=== PATIENT | male | born 1965 | race African-American/Black ===

== ENCOUNTER 2019-06-10 15:00 | Inpatient (IN) ==
[2019-06-10 15:53] LABS: Apearance,Urine CLEAR (Clear); Bilirubin,Urine Negative (Negative); Blood, Urine Negative (Negative); Glucose,Urine (UA) Negative (Negative); Ketones,Urine 5 mg/dL (Negative); Mucus,Urine Occasional /LPF (Occasional); Nitrite,Urine Negative (Negative); Protein,Urine >=500 MG/DL; RBC,Urine 1 /HPF (0-4); Squamous Epithelial Cell,Urine Occasional /HPF (0-10); Urine Color Amber (Yellow); WBC,Urine <1 /HPF (0-6)
[2019-06-10 16:24] LABS: Basophils # 0.1 10*3/uL (0.0-0.2); Basophils % 0.9 % (0.0-0.8); Eosinophils # 0.3 10*3/uL (0.0-0.87); Eosinophils % 5.5 % (0.00-10.9); Hematocrit 34.6 VOL% (42.0-52.0); Hemoglobin 10.5 GM/DL (14.0-18.0); Immature Granulocytes % 0.4 %; Immature Granulocytes Absolute 0.02 #; Lymphocytes # 0.8 10*3/uL (1.4-4.0); Lymphocytes % 13.7 % (21.2-54.2); Mean Corpuscular HGB Conc 30.3 GM/DL (32-36); Mean Corpuscular Volume 70.3 FL (87-102); Monocytes % 5.1 % (1.7-12.7); Neutrophils % 74.4 % (38.7-73.9); Platelet Count 194 T/CUMM (130-400); Red Blood Count 4.92 MC/CUMM (3.8-5.5); Red Cell Distribution Width 22.3 % (9.3-17.3); White Blood Count 5.7 T/CUMM (4-12)
[2019-06-10 16:41] LABS: Albumin 3.5 G/DL (3.4-5.0); Calcium 8.8 MG/DL (8.5-10.1); Osmolality,Calculated 292.1 MOS/KG (273-304); Total Protein 6.7 G/DL (6.4-8.3)
[2019-06-10] MEDS ORDERED: ACETAMINOPHEN 325 MG TABLET PO PRN (18:41)
[2019-06-10] MEDS ORDERED: ONDANSETRON 4 MG/2 ML VIAL IV PRN (18:41)
[2019-06-10] MEDS: DEXTROSE 5% NACL 0.45% 1,000 ML IV SCH (19:30)
[2019-06-10] MEDS ORDERED: hydrALAZINE 20 MG/1 ML VIAL IV STA ×2 (19:47→19:48)
[2019-06-10] MEDS ORDERED: hydrALAZINE 20 MG/1 ML VIAL IV PRN (19:48)
[2019-06-10 19:51] LABS: Calcium 8.5 MG/DL (8.5-10.1); Osmolality,Calculated 295.8 MOS/KG (273-304)
[2019-06-10 20:35] LABS: Barbiturates Screen,Urine Negative (Negative); Benzodiazepines Screen,Urine Negative (Negative); Cannabinoid Screen,Urine Positive (Negative); Opiate Screen,Urine Negative (Negative); Phencyclidine Screen,Urine Negative (Negative)
[2019-06-10] MEDS: cefOXitin 2,000 MG in SYRINGE 1 EACH IV SCH (20:58)
[2019-06-10] MEDS ORDERED: hydrALAZINE 25 MG TABLET PO SCH (22:00)
[2019-06-11] MEDS ORDERED: PNEUMOCOCCAL VACCINE (23 VALENT) 0.5 ML VIAL IM ONE (00:30)
[2019-06-11] MEDS: cefOXitin 2,000 MG in SYRINGE 1 EACH IV SCH ×4 (01:57→20:55)
[2019-06-11 04:53] LABS: Basophils # 0.1 10*3/uL (0.0-0.2); Basophils % 0.8 % (0.0-0.8); Eosinophils # 0.5 10*3/uL (0.0-0.87); Eosinophils % 7.1 % (0.00-10.9); Hemoglobin 10.6 GM/DL (14.0-18.0); Immature Granulocytes % 0.7 %; Immature Granulocytes Absolute 0.05 #; Lymphocytes # 1.3 10*3/uL (1.4-4.0); Lymphocytes % 17.5 % (21.2-54.2); Mean Corpuscular HGB Conc 31.2 GM/DL (32-36); Mean Corpuscular Volume 68.4 FL (87-102); Monocytes % 4.5 % (1.7-12.7); Neutrophils % 69.4 % (38.7-73.9); Platelet Count 196 T/CUMM (130-400); Red Blood Count 4.97 MC/CUMM (3.8-5.5); Red Cell Distribution Width 22.7 % (9.3-17.3); White Blood Count 7.3 T/CUMM (4-12)
[2019-06-11 05:17] LABS: Anisocytosis 1+; Hypochromasia 2+; Microcytosis 1+
[2019-06-11 05:18] LABS: Acanthocytes Few; Poikilocytosis 1+; Target Cells Slight
[2019-06-11 05:19] LABS: % Iron Saturation 5.4 % (18-50); Ferritin 28.8 ng/ml (26-388)
[2019-06-11 05:35] LABS: Calcium 8.6 MG/DL (8.5-10.1); Osmolality,Calculated 288.1 MOS/KG (273-304)
[2019-06-11 05:38] LABS: Vitamin B12 355 PG/ML (211-911)
[2019-06-11] MEDS: DEXTROSE 5% NACL 0.45% 1,000 ML IV SCH (06:06)
[2019-06-11 06:15] LABS: Sedimentation Rate-Westergren 3 MM/HR (0-20)
[2019-06-11 07:54] LABS: Hemoglobin A1 (Alkaline) 97.3 % (96.5-98.5); Hemoglobin A2 (Alkaline) 2.7 % (1.5-3.5)
[2019-06-11] MEDS: NICOTINE 14 MG/24 HR PATCH TRANSDERM SCH (08:18)
[2019-06-11] MEDS: LEVOFLOXACIN INJ 500 MG in PREMIX 1 EACH IV SCH (08:19)
[2019-06-11] MEDS: PANTOPRAZOLE 40 MG TABLET PO SCH (08:26)
[2019-06-11] MEDS ORDERED: IRON SUCROSE 300 MG in SODIUM CHLORIDE 0.9% 100 ML IV ONE (09:00)
[2019-06-11] MEDS ORDERED: POTASSIUM CHLORIDE 20 MEQ TABLET PO ONE ×2 (09:04→09:05)
[2019-06-11] MEDS: carvediloL 3.125 MG TABLET PO SCH ×2 (10:13→20:56)
[2019-06-11] MEDS ORDERED: ENOXAPARIN 40 MG/0.4 ML SYRINGE SUBCUT SCH (12:42)
[2019-06-12] MEDS: cefOXitin 2,000 MG in SYRINGE 1 EACH IV SCH ×3 (01:48→23:18)
[2019-06-12 05:31] LABS: Basophils # 0.1 10*3/uL (0.0-0.2); Basophils % 0.9 % (0.0-0.8); Eosinophils # 0.5 10*3/uL (0.0-0.87); Eosinophils % 8.3 % (0.00-10.9); Hematocrit 35.3 VOL% (42.0-52.0); Hemoglobin 10.9 GM/DL (14.0-18.0); Immature Granulocytes % 0.2 %; Immature Granulocytes Absolute 0.01 #; Lymphocytes # 1.1 10*3/uL (1.4-4.0); Lymphocytes % 19.3 % (21.2-54.2); Mean Corpuscular HGB Conc 30.9 GM/DL (32-36); Mean Corpuscular Volume 68.1 FL (87-102); Neutrophils % 62.3 % (38.7-73.9); Platelet Count 229 T/CUMM (130-400); Red Blood Count 5.18 MC/CUMM (3.8-5.5); Red Cell Distribution Width 22.6 % (9.3-17.3); White Blood Count 5.8 T/CUMM (4-12)
[2019-06-12 06:01] LABS: Acanthocytes Few; Anisocytosis 1+; Hypochromasia 2+; Microcytosis 1+; Ovalocytes Slight; Poikilocytosis 1+; Target Cells Slight
[2019-06-12 06:02] LABS: Platelet Estimate Normal
[2019-06-12 06:15] LABS: Albumin 3.2 G/DL (3.4-5.0); Bilirubin,Total 0.7 MG/DL (0.2-1.0); Calcium 8.9 MG/DL (8.5-10.1); Osmolality,Calculated 287.3 MOS/KG (273-304); Total Protein 6.7 G/DL (6.4-8.3)
[2019-06-12] MEDS: carvediloL 3.125 MG TABLET PO SCH (08:15)
[2019-06-12] MEDS: LEVOFLOXACIN INJ 500 MG in PREMIX 1 EACH IV SCH (08:16)
[2019-06-12] MEDS: PANTOPRAZOLE 40 MG TABLET PO SCH (09:20)
[2019-06-12] MEDS: NICOTINE 14 MG/24 HR PATCH TRANSDERM SCH (09:20)
[2019-06-12] MEDS: carvediloL 6.25 MG TABLET PO SCH ×2 (14:31→21:22)
[2019-06-12] MEDS: FERROUS SULFATE 325 MG TABLET PO SCH (21:22)
[2019-06-12] MEDS: DEXTROSE 5% NACL 0.45% 1,000 ML IV SCH (21:29)
[2019-06-13] MEDS: cefOXitin 2,000 MG in SYRINGE 1 EACH IV SCH ×3 (06:23→18:08)
[2019-06-13] MEDS: carvediloL 6.25 MG TABLET PO SCH (08:27)
[2019-06-13] MEDS: LEVOFLOXACIN INJ 500 MG in PREMIX 1 EACH IV SCH (08:28)
[2019-06-13] MEDS: NICOTINE 14 MG/24 HR PATCH TRANSDERM SCH (08:43)
[2019-06-13] MEDS: PANTOPRAZOLE 40 MG TABLET PO SCH (08:43)
[2019-06-13] MEDS: FERROUS SULFATE 325 MG TABLET PO SCH ×2 (08:43→20:30)
[2019-06-13] MEDS ORDERED: ceFAZolin 1,000 MG VIAL ONE ×2 (10:29→11:22)
[2019-06-13] MEDS ORDERED: LIDOCAINE 1% 20 ML VIAL ONE (10:29)
[2019-06-13] MEDS ORDERED: BUPIVACAINE 0.25% /EPI 10 ML VIAL ONE (10:29)
[2019-06-13] MEDS ORDERED: SEVOFLURANE 1 UNIT/15 MINUTE INH ONE (13:09)
[2019-06-13] MEDS ORDERED: fentaNYL 100 MCG/2 ML VIAL ONE (13:10)
[2019-06-13] MEDS ORDERED: propofoL 200 MG/20 ML VIAL IV ONE (13:10)
[2019-06-13] MEDS ORDERED: PHENYLEPHRINE DRIP 20 MG/250 ML PREMIX IV ONE (13:10)
[2019-06-13] MEDS ORDERED: PHENYLEPHRINE 1 MG/10 ML SYRINGE IV ONE (13:11)
[2019-06-13] MEDS ORDERED: ePHEDrine 50 MG/ML AMP ONE (13:11)
[2019-06-13] MEDS ORDERED: MIDAZOLAM 2 MG/2 ML VIAL ONE (13:11)
[2019-06-13] MEDS ORDERED: KETOROLAC 30 MG/1 ML VIAL IV ONE (15:34)
[2019-06-13] MEDS ORDERED: HYDROmorphone 2 MG/1 ML VIAL IV PRN (15:34)
[2019-06-13] MEDS: DEXTROSE 5% NACL 0.45% 1,000 ML IV SCH (20:18)
[2019-06-13] MEDS: carvediloL 12.5 MG TABLET PO SCH (20:30)
[2019-06-14] MEDS: cefOXitin 2,000 MG in SYRINGE 1 EACH IV SCH ×3 (00:22→11:45)
[2019-06-14] MEDS: DEXTROSE 5% NACL 0.45% 1,000 ML IV SCH (05:11)
[2019-06-14 05:37] LABS: Albumin 2.9 G/DL (3.4-5.0); Bilirubin,Total 0.8 MG/DL (0.2-1.0); Calcium 8.6 MG/DL (8.5-10.1); Osmolality,Calculated 283.5 MOS/KG (273-304)
[2019-06-14] MEDS ORDERED: amLODIPine 10 MG TABLET PO SCH (09:30)
[2019-06-14] MEDS: FERROUS SULFATE 325 MG TABLET PO SCH (09:57)
[2019-06-14] MEDS: PANTOPRAZOLE 40 MG TABLET PO SCH (09:57)
[2019-06-14] MEDS: carvediloL 12.5 MG TABLET PO SCH (09:57)
[2019-06-14] MEDS: LEVOFLOXACIN INJ 500 MG in PREMIX 1 EACH IV SCH (09:58)
[2019-06-14] MEDS: NICOTINE 14 MG/24 HR PATCH TRANSDERM SCH (10:02)
[2019-06-14 12:08] VITALS: BP 116/67
== END 2019-06-14 14:30 | disposition home or self-care (01) | DRG 228 ==
LOC: N.ED 15:00 → N.EDINP 18:41 → N.3E 19:54
PROVIDERS: ADMIT Surgery; ATTEND Surgery

== ENCOUNTER 2020-12-22 12:42 | Inpatient (IN) ==
[2020-12-22] MEDS ORDERED: FUROSEMIDE 100 MG/10 ML VIAL IV STA (13:09)
[2020-12-22] MEDS ORDERED: METOPROLOL TARTRATE 5 MG/5 ML VIAL IV STA (13:10)
[2020-12-22] MEDS ORDERED: hydrALAZINE 20 MG/1 ML VIAL IV STA (13:10)
[2020-12-22 13:59] LABS: Basophils # 0.1 10*3/uL (0.0-0.2); Eosinophils # 0.1 10*3/uL (0.0-0.87); Eosinophils % 1.7 % (0.00-10.9); Hematocrit 34.9 VOL% (42.0-52.0); Hemoglobin 10.5 GM/DL (14.0-18.0); Immature Granulocytes % 0.4 %; Immature Granulocytes Absolute 0.03 #; Lymphocytes # 1.1 10*3/uL (1.4-4.0); Lymphocytes % 15.1 % (21.2-54.2); Mean Corpuscular HGB Conc 30.1 GM/DL (32-36); Mean Corpuscular Volume 69.7 FL (87-102); Monocytes % 5.2 % (1.7-12.7); NRBC # 0.06 10*3/uL; Neutrophils % 76.6 % (38.7-73.9); Platelet Count 215 T/CUMM (130-400); Red Blood Count 5.01 MC/CUMM (3.8-5.5); Red Cell Distribution Width 17.4 % (9.3-17.3); White Blood Count 7.2 T/CUMM (4-12)
[2020-12-22 14:24] LABS: Calcium 8.6 MG/DL (8.5-10.1)
[2020-12-22 14:25] LABS: Albumin 2.7 G/DL (3.4-5.0); Bilirubin,Total 1.5 MG/DL (0.2-1.0); Osmolality,Calculated 291.8 MOS/KG (273-304); Total Protein 5.9 G/DL (5.0-7.5)
[2020-12-22 14:59] LABS: INR 1.2; PT Patient Result 12.9 SECS (9.8-11.9); Partial Thromboplastin Time 27.3 SECS (23.9-33.8)
[2020-12-22 15:09] LABS: Bilirubin,Urine Negative (Negative); Blood, Urine Negative (Negative); Glucose,Urine (UA) Negative (Negative); Hyaline Casts,Urine 1 /LPF (0-3); Ketones,Urine Negative (Negative); Mucus,Urine Occasional /LPF (Occasional); Nitrite,Urine Negative (Negative); Protein,Urine 100 MG/DL; RBC,Urine 2 /HPF (0-4); Squamous Epithelial Cell,Urine Occasional /HPF (0-10); Urine Appearance CLEAR (Clear); Urine Color Yellow (Yellow); Urine Specific Gravity 1.013 (1.001-1.035); Urine Urobilinogen < 2.0 EU/DL (0.2-1.0); WBC,Urine 1 /HPF (0-6)
[2020-12-22 15:14] LABS: Barbiturates Screen,Urine Negative (Negative); Benzodiazepines Screen,Urine Negative (Negative); Cannabinoid Screen,Urine Negative (Negative); Opiate Screen,Urine Negative (Negative); Phencyclidine Screen,Urine Negative (Negative)
[2020-12-22] MEDS ORDERED: DEXTROSE 50% 25 GM/50 ML VIAL IV PRN (15:28)
[2020-12-22] MEDS ORDERED: ONDANSETRON 4 MG/2 ML VIAL IV PRN (15:28)
[2020-12-22] MEDS ORDERED: GLUCAGON 1 MG VIAL IM PRN (15:28)
[2020-12-22] MEDS ORDERED: ACETAMINOPHEN 325 MG TABLET PO PRN (15:28)
[2020-12-22 18:18] LABS: Risk Ratio 2.48; Thyroid Stimulating Hormone 2.33 uIU/ml (0.358-3.74); VLDL CHOLESTEROL 14.2 MG/DL
[2020-12-22] MEDS ORDERED: hydrALAZINE 20 MG/1 ML VIAL IV PRN (18:26)
[2020-12-22] MEDS: ENOXAPARIN 40 MG/0.4 ML SYRINGE SUBCUT SCH (18:40)
[2020-12-22] MEDS ORDERED: FUROSEMIDE 40 MG/4 ML VIAL IM ONE (20:06)
[2020-12-22] MEDS ORDERED: FUROSEMIDE 40 MG/4 ML VIAL IV ONE (21:17)
[2020-12-23 06:16] LABS: Basophils # 0.1 10*3/uL (0.0-0.2); Eosinophils # 0.3 10*3/uL (0.0-0.87); Eosinophils % 3.8 % (0.00-10.9); Hematocrit 32.9 VOL% (42.0-52.0); Hemoglobin 10.3 GM/DL (14.0-18.0); Immature Granulocytes % 0.6 %; Immature Granulocytes Absolute 0.05 #; Lymphocytes # 1.2 10*3/uL (1.4-4.0); Lymphocytes % 15.6 % (21.2-54.2); Mean Corpuscular HGB Conc 31.3 GM/DL (32-36); Mean Corpuscular Volume 67.1 FL (87-102); Monocytes % 9.2 % (1.7-12.7); NRBC # 0.03 10*3/uL; Neutrophils % 69.8 % (38.7-73.9); Platelet Count 222 T/CUMM (130-400); Red Cell Distribution Width 17.2 % (9.3-17.3)
[2020-12-23 06:20] LABS: Calcium 8.7 MG/DL (8.5-10.1); Osmolality,Calculated 296.4 MOS/KG (273-304); Potassium 3.1 MMOL/L (3.5-5.1)
[2020-12-23 06:38] LABS: Hypochromasia Slight; Platelet Estimate Adequate
[2020-12-23] MEDS ORDERED: POTASSIUM CHLORIDE 20 MEQ TABLET PO ONE ×2 (07:53→15:00)
[2020-12-23] MEDS: ISOSORBIDE MONONITRATE 60 MG TABLET PO SCH (08:14)
[2020-12-23] MEDS: FUROSEMIDE 40 MG/4 ML VIAL IV SCH ×2 (08:15→15:34)
[2020-12-23] MEDS ORDERED: FUROSEMIDE 40 MG/4 ML VIAL IV SCH (09:00)
[2020-12-23] MEDS: carvediloL 6.25 MG TABLET PO SCH ×2 (11:53→21:09)
[2020-12-23] MEDS: ASPIRIN EC 81 MG TABLET PO SCH (11:53)
[2020-12-23] MEDS: DOCUSATE SODIUM 100 MG CAPSULE PO PRN (17:02)
[2020-12-23] MEDS: ENOXAPARIN 40 MG/0.4 ML SYRINGE SUBCUT SCH (17:03)
[2020-12-23] MEDS ORDERED: METHOCARBAMOL 750 MG TABLET PO PRN (17:49)
[2020-12-23 18:38] LABS: Creatinine,Urine Random 14 MG/DL; Total Protein,Urine Random 8 MG/DL
[2020-12-24 05:41] LABS: Basophils # 0.1 10*3/uL (0.0-0.2); Basophils % 0.7 % (0.0-0.8); Eosinophils # 0.4 10*3/uL (0.0-0.87); Eosinophils % 4.5 % (0.00-10.9); Hematocrit 31.4 VOL% (42.0-52.0); Hemoglobin 10.2 GM/DL (14.0-18.0); Immature Granulocytes % 0.3 %; Immature Granulocytes Absolute 0.03 #; Lymphocytes # 1.3 10*3/uL (1.4-4.0); Lymphocytes % 15.5 % (21.2-54.2); Mean Corpuscular HGB Conc 32.5 GM/DL (32-36); Mean Corpuscular Volume 66.7 FL (87-102); Platelet Count 188 T/CUMM (130-400); Red Blood Count 4.71 MC/CUMM (3.8-5.5); Red Cell Distribution Width 17.2 % (9.3-17.3); White Blood Count 8.7 T/CUMM (4-12)
[2020-12-24 06:03] LABS: Hypochromasia 1+; Platelet Estimate Adequate
[2020-12-24 06:09] LABS: Calcium 8.5 MG/DL (8.5-10.1)
[2020-12-24] MEDS ORDERED: POTASSIUM CHLORIDE 20 MEQ TABLET PO ONE (09:00)
[2020-12-24] MEDS: ASPIRIN EC 81 MG TABLET PO SCH (09:37)
[2020-12-24] MEDS: FUROSEMIDE 80 MG TABLET PO SCH (09:38)
[2020-12-24] MEDS: POTASSIUM CHLORIDE 20 MEQ TABLET PO SCH (09:38)
[2020-12-24] MEDS: ISOSORBIDE MONONITRATE 60 MG TABLET PO SCH (09:38)
[2020-12-24] MEDS: carvediloL 6.25 MG TABLET PO SCH (09:38)
[2020-12-24] MEDS ORDERED: MAGNESIUM SULF RIDER 2 GM in PREMIX 1 EACH IV ONE (11:53)
[2020-12-24] MEDS: ENOXAPARIN 40 MG/0.4 ML SYRINGE SUBCUT SCH (18:16)
[2020-12-24] MEDS: DOCUSATE SODIUM 100 MG CAPSULE PO PRN (18:17)
[2020-12-24] MEDS ORDERED: carvediloL 12.5 MG TABLET PO SCH (21:00)
[2020-12-25 04:14] LABS: Basophils # 0.1 10*3/uL (0.0-0.2); Basophils % 0.6 % (0.0-0.8); Eosinophils # 0.3 10*3/uL (0.0-0.87); Eosinophils % 3.3 % (0.00-10.9); Hematocrit 32.3 VOL% (42.0-52.0); Immature Granulocytes % 0.3 %; Immature Granulocytes Absolute 0.03 #; Lymphocytes # 1.1 10*3/uL (1.4-4.0); Mean Corpuscular Volume 67.7 FL (87-102); Mean Platelet Volume 11.2 FL (9.6-12.0); Monocytes % 9.5 % (1.7-12.7); NRBC # 0.02 10*3/uL; Neutrophils % 75.3 % (38.7-73.9); Red Blood Count 4.77 MC/CUMM (3.8-5.5); Red Cell Distribution Width 17.2 % (9.3-17.3); White Blood Count 9.6 T/CUMM (4-12)
[2020-12-25 04:36] LABS: Platelet Count 231 T/CUMM (130-400)
[2020-12-25 04:39] LABS: Calcium 8.3 MG/DL (8.5-10.1); Osmolality,Calculated 288.7 MOS/KG (273-304); Potassium 3.5 MMOL/L (3.5-5.1)
[2020-12-25 05:26] LABS: Acanthocytes Few; Hypochromasia 2+; Microcytosis 1+; Ovalocytes Few; Target Cells Slight
[2020-12-25 05:27] LABS: Platelet Estimate Normal
[2020-12-25] MEDS ORDERED: carvediloL 25 MG TABLET PO SCH (09:00)
[2020-12-25] MEDS: ISOSORBIDE MONONITRATE 60 MG TABLET PO SCH (09:40)
[2020-12-25] MEDS: POTASSIUM CHLORIDE 20 MEQ TABLET PO SCH (09:40)
[2020-12-25] MEDS: FUROSEMIDE 80 MG TABLET PO SCH (09:40)
[2020-12-25] MEDS: ASPIRIN EC 81 MG TABLET PO SCH (09:40)
[2020-12-25 11:43] VITALS: BP 128/65
== END 2020-12-25 14:04 | disposition home or self-care (01) | DRG 194 ==
LOC: N.EDINP 12:42 → N.ED 12:42 → N.TELEN 16:39
PROVIDERS: ADMIT Internal Medicine; ATTEND Internal Medicine

== ENCOUNTER 2021-01-15 09:12 | Observation (INO) ==
[2021-01-15 11:18] LABS: Basophils # 0.1 10*3/uL (0.0-0.2); Basophils % 0.8 % (0.0-0.8); Eosinophils # 0.2 10*3/uL (0.0-0.87); Eosinophils % 2.9 % (0.00-10.9); Hematocrit 33.7 VOL% (42.0-52.0); Hemoglobin 9.9 GM/DL (14.0-18.0); Immature Granulocytes % 0.5 %; Immature Granulocytes Absolute 0.04 #; Lymphocytes # 1.4 10*3/uL (1.4-4.0); Lymphocytes % 16.8 % (21.2-54.2); Mean Corpuscular HGB Conc 29.4 GM/DL (32-36); Mean Corpuscular Volume 67.7 FL (87-102); Monocytes % 10.7 % (1.7-12.7); Neutrophils % 68.3 % (38.7-73.9); Platelet Count 322 T/CUMM (130-400); Red Blood Count 4.98 MC/CUMM (3.8-5.5); Red Cell Distribution Width 18.8 % (9.3-17.3); White Blood Count 8.4 T/CUMM (4-12)
[2021-01-15 11:35] LABS: Albumin 2.9 G/DL (3.4-5.0); Bilirubin,Total 0.7 MG/DL (0.2-1.0); Calcium 8.7 MG/DL (8.5-10.1); Osmolality,Calculated 291.1 MOS/KG (273-304); Potassium 3.6 MMOL/L (3.5-5.1); Total Protein 5.9 G/DL (6.4-8.2)
[2021-01-15 11:35] LABS: Barbiturates Screen,Urine Negative (Negative); Benzodiazepines Screen,Urine Negative (Negative); Cannabinoid Screen,Urine Negative (Negative); Opiate Screen,Urine Negative (Negative); Phencyclidine Screen,Urine Negative (Negative)
[2021-01-15 11:38] LABS: Eosinophils 1 % (0-10); Hypochromasia 1+; Lymphocytes 15 % (20-55); Microcytosis 1+; Polychromasia Slight; Segmented Neutrophils 70 % (50-85); Total Cells Counted 100
[2021-01-15 11:39] LABS: Acanthocytes Few; Ovalocytes Slight; Platelet Estimate Normal
[2021-01-15] MEDS ORDERED: GLUCAGON 1 MG VIAL IM PRN (12:58)
[2021-01-15] MEDS ORDERED: ONDANSETRON 4 MG/2 ML VIAL IV PRN (12:58)
[2021-01-15] MEDS ORDERED: hydrALAZINE 20 MG/1 ML VIAL IV PRN (12:58)
[2021-01-15] MEDS ORDERED: DEXTROSE 50% 25 GM/50 ML VIAL IV PRN (12:58)
[2021-01-15] MEDS ORDERED: ACETAMINOPHEN 325 MG TABLET PO PRN (12:58)
[2021-01-15] MEDS: PANTOPRAZOLE 40 MG TABLET PO SCH (15:00)
[2021-01-15] MEDS: NICOTINE 21 MG/24 HR PATCH TRANSDERM SCH (16:34)
[2021-01-15] MEDS: FUROSEMIDE 40 MG/4 ML VIAL IV SCH (16:34)
[2021-01-15] MEDS ORDERED: ENOXAPARIN 30 MG/0.3 ML SYRINGE SUBCUT SCH (21:00)
[2021-01-15] MEDS: carvediloL 25 MG TABLET PO SCH (22:10)
[2021-01-16 06:10] LABS: Basophils # 0.1 10*3/uL (0.0-0.2); Basophils % 1.3 % (0.0-0.8); Eosinophils # 0.3 10*3/uL (0.0-0.87); Eosinophils % 4.4 % (0.00-10.9); Hematocrit 30.7 VOL% (42.0-52.0); Hemoglobin 9.4 GM/DL (14.0-18.0); Immature Granulocytes % 0.3 %; Immature Granulocytes Absolute 0.02 #; Lymphocytes # 1.1 10*3/uL (1.4-4.0); Lymphocytes % 17.4 % (21.2-54.2); Mean Corpuscular HGB Conc 30.6 GM/DL (32-36); Mean Platelet Volume 10.3 FL (9.6-12.0); Monocytes % 10.5 % (1.7-12.7); Neutrophils % 66.1 % (38.7-73.9); Platelet Count 281 T/CUMM (130-400); Red Blood Count 4.72 MC/CUMM (3.8-5.5); Red Cell Distribution Width 18.4 % (9.3-17.3); White Blood Count 6.2 T/CUMM (4-12)
[2021-01-16 06:47] LABS: Calcium 8.6 MG/DL (8.5-10.1); Osmolality,Calculated 284.5 MOS/KG (273-304); Potassium 3.5 MMOL/L (3.5-5.1)
[2021-01-16 06:49] LABS: Acanthocytes Few; Anisocytosis 1+; Platelet Estimate Normal; Poikilocytosis 1+; Target Cells Few
[2021-01-16 06:50] LABS: Hypochromasia Slight; Polychromasia Slight; Tear Drop Cells Few
[2021-01-16] MEDS: NICOTINE 21 MG/24 HR PATCH TRANSDERM SCH (08:26)
[2021-01-16] MEDS: PANTOPRAZOLE 40 MG TABLET PO SCH (08:27)
[2021-01-16] MEDS: carvediloL 25 MG TABLET PO SCH (08:27)
[2021-01-16] MEDS: FUROSEMIDE 40 MG/4 ML VIAL IV SCH (08:32)
[2021-01-16 11:56] VITALS: BP 124/66
== END 2021-01-16 13:13 | disposition home or self-care (01) ==
LOC: N.ED 09:12 → N.EDINP 09:12 → N.3E 15:05
PROVIDERS: ADMIT Emergency Medicine; ATTEND Emergency Medicine